=== PATIENT | male | born 1960 | race Caucasian/White ===

== ENCOUNTER → 2020-04-09 | Outpatient (CLI) | payer OTHER ==
--- NOTE | 2020-04-09 16:32 | RAD ---
EXAM: Right shoulder, 3 views. HISTORY: Pain. COMPARISON: None. FINDINGS: 3 views of the right shoulder obtained. There is no fracture, dislocation or subluxation. IMPRESSION: No acute osseous finding. Electronically signed by: Melissa Mast MD (04/09/2020 4:29 PM) [id number]
== END ==
LOC: RAD 16:06
PROVIDERS: ATTEND Family Medicine
DX: S49.92XA Unspecified injury of left shoulder and upper arm, initial encounter (principal); X58.XXXA Exposure to other specified factors, initial encounter; Y93.89 Activity, other specified; Y92.89 Other specified places as the place of occurrence of the external cause; Y99.8 Other external cause status
CPT/HCPCS: 73030

== ENCOUNTER → 2020-06-11 | Outpatient (CLI) | payer OTHER ==
--- NOTE | 2020-06-11 16:13 | CARD ---
MR#: [id number] Date of Study: 06/11/2020 Ordering Physician: YINA BENEDICT, Referring Physician: YINA BENEDICT, Tech: Anais Mcdonald, RUST APPROVED REPORT EXAM: Two-dimensional and M-mode echocardiogram with Doppler and color Doppler. Other Information Quality : AverageHR: 62bpm INDICATION Atrial Fibrillation RISK FACTORS Hypertension Hyperlipidemia 2D DIMENSIONS RVDd3.3 (2.9-3.5cm)Left Atrium(2D)3.5 (1.6-4.0cm) IVSd1.1 (0.7-1.1cm)Aortic Root(2D)3.1 (2.0-3.7cm) LVDd4.9 (3.9-5.9cm)LVOT Diameter2.2 (1.8-2.4cm) PWd1.1 (0.7-1.1cm)LVDs3.0 (2.5-4.0cm) FS (%) 37.8 %SV74.9 ml Aortic Valve AoV Peak John Paul.135.7cm/sAoV VTI24.7cm AO Peak GR.7.4mmHgLVOT Peak John Paul.119.7cm/s LVOT VTI 23.69cmAO Mean GR.4mmHg KIMMIE (VMAX)3.15mj7CHA (VTI)3.54cm2 Mitral Valve MV E Payblfkk107.6cm/sMV DECEL [id number] MV A Igekinum45.1cm/sE/A Ratio3.2 Pulmonary Valve PV Peak Kesmfghk26.1cm/sPV Peak Grad.4mmHg Tricuspid Valve TR P. Jhekntjl549sb/sRAP [id number] TR Peak Gr.[id number] LEFT VENTRICLE The left ventricle is normal size. There is mild concentric left ventricular hypertrophy. The left ve ntricular systolic function is normal and the ejection fraction is within normal range. The Ejection Fraction is 50-55%. Wall motion consistent with conduction abnormality. RIGHT VENTRICLE The right ventricle is normal size. There is normal right ventricular wall thickness. The right ventr icular systolic function is normal. ATRIA The left atrium size is normal. The right atrium size is normal. The interatrial septum is intact wit h no evidence for an atrial septal defect or patent foramen ovale as noted on 2-D or Doppler imaging. AORTIC VALVE The aortic valve is normal in structure and function. Doppler and Color Flow revealed no significant aortic regurgitation. There is no significant aortic valvular stenosis. Calculated aortic valve area is 3.9 cm2 with maximum pressure gradient of 7 mmHg and mean pressure gradient of 4 mmHg. MITRAL VALVE The mitral valve is normal in structure and function. There is no evidence of mitral valve prolapse. There is no mitral valve stenosis. Doppler and Color-flow revealed trace mitral regurgitation. TRICUSPID VALVE The tricuspid valve is normal in structure and function. Doppler and Color Flow revealed trace tricus pid regurgitation with an estimated PAP of 24 mmHg. There is no tricuspid valve stenosis. PULMONIC VALVE The pulmonary valve is normal in structure and function. Doppler and Color Flow revealed trace pulmon ic valvular regurgitation. GREAT VESSELS The aortic root is normal in size. The ascending aorta is normal in size. The IVC is normal in size a nd collapses >50% with inspiration. PERICARDIAL EFFUSION There is no evidence of significant pericardial effusion. Critical Notification Critical Value: No <Conclusion> The left ventricle is normal size. The left ventricular systolic function is normal and the ejection fraction is within normal range. The Ejection Fraction is 50-55%. Wall motion consistent with conduction abnormality. There is mild concentric left ventricular hypertrophy. Doppler and Color Flow revealed no significant aortic regurgitation. There is no significant aortic valvular stenosis. Doppler and Color-flow revealed trace mitral regurgitation. Doppler and Color Flow revealed trace tricuspid regurgitation with an estimated PAP of 24 mmHg. Signed by : Jose Carlos Garber MD Electronically Approved : 06/11/2020 16:13:06
== END ==
LOC: ECHO 08:33
PROVIDERS: ATTEND Internal Medicine Cardiovascular Disease
DX: I51.7 Cardiomegaly (principal); I48.91 Unspecified atrial fibrillation
CPT/HCPCS: 93306